=== PATIENT | female | born 1985 | race African-American/Black ===

== ENCOUNTER → 2016-06-10 | Outpatient (CLI) | payer MEDICAID | LOC: RAD 13:40 | PROVIDERS: ATTEND Nurse Practitioner | DX: M79.671 Pain in right foot (principal) ==

== ENCOUNTER 2016-08-12 | Emergency (ER) | payer MEDICAID ==
--- NOTE | 2016-08-12 16:36 | ER Document Report ---
ED Medical Screen (RME) - General Stated Complaint: SPIDER BITE Notes: Patient states she was bit by a spider on her left fourth toe yesterday. Did not actually see the spider. Has pain and swelling to toes and upper foot I have greeted and performed a rapid initial assessment of this patient. A comprehensive ED assessment and evaluation of the patient, analysis of test results and completion of the medical decision making process will be conducted by additional ED providers. TRAVEL OUTSIDE OF THE [place] IN LAST 30 DAYS: No - Related Data Allergies/Adverse Reactions: Norgestimate-Ethinyl Estradiol * [From [employer]en (28)] Allergy (Severe, Verified 08/12/16 16:34) Hives peanut [Peanut] Allergy (Unknown, Verified 08/12/16 16:34) Shellfish * [Shellfish] Allergy (Unknown, Verified 08/12/16 16:34) soap Allergy (Severe, Uncoded 08/12/16 16:34) break out/itch Past Medical History - Past Medical History Cardiac Medical History: Reports: Hx Hypertension Denies: Hx Coronary Artery Disease, Hx Heart Attack - 2006 mild ? Pulmonary Medical History: Reports: Hx Bronchitis, Hx Pneumonia Denies: Hx Asthma, Hx COPD Neurological Medical History: Denies: Hx Cerebrovascular Accident, Hx Seizures Endocrine Medical History: Reports: Hx Diabetes Mellitus Type 2 Renal/ Medical History: Denies: Hx Ectopic GI Medical History: Reports: Hx Gastroesophageal Reflux Disease Musculoskeltal Medical History: Reports Hx Arthritis - arms,knees Psychiatric Medical History: Reports: Hx Bipolar Disorder, Hx Schizophrenia Infectious Medical History: Past Surgical History: Reports: Hx Section, Hx Cholecystectomy, Hx Oral Surgery - wisdom teeth - Immunizations Immunizations up to date: Yes Hx Diphtheria, Pertussis, Tetanus Vaccination: Yes Physical Exam - Vital signs Vitals: Temp Pulse Resp BP Pulse Ox 98.7 F 76 18 152/92 H 98 08/12/16 16:17 08/12/16 16:17 08/12/16 16:17 08/12/16 16:17 08/12/16 16:17 - Extremities Notes: mild erythema and redness to left fourth and fifth toes. Small dark spot noted to left fourth toe. Course - Vital Signs Vital signs: Temp Pulse Resp BP Pulse Ox 98.7 F 76 18 152/92 H 98 08/12/16 16:17 08/12/16 16:17 08/12/16 16:17 08/12/16 16:17 08/12/16 16:17
--- NOTE | 2016-08-12 17:26 | ER Document Report ---
ED General - General Chief Complaint: Foot Injury Stated Complaint: SPIDER BITE TRAVEL OUTSIDE OF THE [place] IN LAST 30 DAYS: No - HPI Patient complains to provider of: evaluation of left fourth toe Notes: Patient is concerned she was bitten by a spider night prior to arrival due to swelling and itching of her left fourth toe. Patient states that she is been bitten by multiple infections before with swelling erythema and itching. Patient denies any trauma to the toe. - Related Data Allergies/Adverse Reactions: Norgestimate-Ethinyl Estradiol * [From Ortho Tri-Cyclen (28)] Allergy (Severe, Verified 08/12/16 16:34) Hives peanut [Peanut] Allergy (Unknown, Verified 08/12/16 16:34) Shellfish * [Shellfish] Allergy (Unknown, Verified 08/12/16 16:34) soap Allergy (Severe, Uncoded 08/12/16 16:34) break out/itch Past Medical History - Social History Smoking Status: Never Smoker Chew tobacco use (# tins/day): No Frequency of alcohol use: Occasional Drug Abuse: None Family History: Reviewed & Not Pertinent Patient has suicidal ideation: No Patient has homicidal ideation: No - Past Medical History Cardiac Medical History: Reports: Hx Hypertension Denies: Hx Coronary Artery Disease, Hx Heart Attack - 2006 mild ? Pulmonary Medical History: Reports: Hx Bronchitis, Hx Pneumonia Denies: Hx Asthma, Hx COPD Neurological Medical History: Denies: Hx Cerebrovascular Accident, Hx Seizures Endocrine Medical History: Reports: Hx Diabetes Mellitus Type 2 Renal/ Medical History: Denies: Hx Ectopic , Hx Peritoneal Dialysis GI Medical History: Reports: Hx Gastroesophageal Reflux Disease Musculoskeltal Medical History: Reports Hx Arthritis - arms,knees Psychiatric Medical History: Reports: Hx Bipolar Disorder, Hx Schizophrenia Infectious Medical History: Past Surgical History: Reports: Hx Section, Hx Cholecystectomy, Hx Oral Surgery - wisdom teeth - Immunizations Immunizations up to date: Yes Hx Diphtheria, Pertussis, Tetanus Vaccination: Yes Review of Systems - Review of Systems Constitutional: No symptoms reported EENT: No symptoms reported Cardiovascular: No symptoms reported Respiratory: No symptoms reported Gastrointestinal: No symptoms reported Genitourinary: No symptoms reported Female Genitourinary: No symptoms reported Musculoskeletal: Other - Toe swelling and itching Skin: No symptoms reported Hematologic/Lymphatic: No symptoms reported Neurological/Psychological: No symptoms reported Physical Exam - Vital signs Vitals: Temp Pulse Resp BP Pulse Ox 98.7 F 76 18 152/92 H 98 08/12/16 16:17 08/12/16 16:17 08/12/16 16:17 08/12/16 16:17 08/12/16 16:17 Interpretation: Normal - General General appearance: Appears well, Alert - HEENT Head: Normocephalic, Atraumatic Eyes: Normal Pupils: PERRL - Respiratory Respiratory status: No respiratory distress Chest status: Nontender Breath sounds: Normal Chest palpation: Normal - Cardiovascular Rhythm: Regular Heart sounds: Normal auscultation Murmur: No - Abdominal Inspection: Normal Distension: No distension Bowel sounds: Normal Tenderness: Nontender Organomegaly: No organomegaly - Back Back: Normal, Nontender - Extremities General upper extremity: Normal inspection, Nontender, Normal color, Normal ROM , Normal temperature General lower extremity: Nontender, Normal color, Normal ROM, Normal temperature , Normal weight bearing. No: Normal inspection - Patient has mild swelling of the fourth toe on the left foot with no warmth noted erythema, Quentin's sign - Neurological Neuro grossly intact: Yes Cognition: Normal Orientation: AAOx4 Vicky Coma Scale Eye Opening: Spontaneous Vicky Coma Scale Verbal: Oriented [place] Coma Scale Motor: Obeys Commands Vicky Coma Scale Total: 15 Speech: Normal Motor strength normal: LUE, RUE, LLE, RLE Sensory: Normal - Psychological Associated symptoms: Normal affect, Normal mood - Skin Skin Temperature: Warm Skin Moisture: Dry Skin Color: Normal Course - Re-evaluation Re-evalutation: 08/12/16 19:47 Exam is consistent with a reaction to a bug bite no signs of infection patient was discharged home - Vital Signs Vital signs: Temp Pulse Resp BP Pulse Ox 98.1 F 77 18 136/86 H 99 08/12/16 18:02 08/12/16 18:02 08/12/16 18:02 08/12/16 18:02 08/12/16 18:02 Discharge - Discharge Clinical Impression: Insect bite Qualifiers: Encounter type: initial encounter Qualified Code(s): W57.XXXA - Bitten or stung by nonvenomous insect and other nonvenomous arthropods, initial encounter Allergic reaction Qualifiers: Encounter type: initial encounter Qualified Code(s): T78.40XA - Allergy, unspecified, initial encounter Condition: Good Disposition: HOME, SELF-CARE Instructions: Swollen Insect Bite or Sting ([facility]) Additional Instructions: You may take the Benadryl [id number] or Atarax as prescribed. You may also take pain medication as prescribed follow-up your primary care physician Prescriptions: Ketorolac Tromethamine [Toradol 10 mg Tablet] 10 mg PO Q8HP PRN #14 tablet PRN Reason: Hydroxyzine HCl [Atarax 25 mg Tablet] 1 tab PO QID #25 tablet Referrals: MOON LUGO, NATE-C [NURSE PRACTITIONER] - Follow up as needed
== END 2016-08-12 18:04 | disposition home or self-care (01) ==
CPT/HCPCS: 99283

== ENCOUNTER → 2017-07-05 | Outpatient (CLI) | payer MEDICAID ==
[2017-07-05 17:29] LABS: FREE T4 (FREE THYROXINE) 1.03 ng/dL (0.78-2.19)
[2017-07-05 17:43] LABS: THYROID STIMULATING HORMONE 1.71 uIU/mL (0.47-4.68)
== END ==
LOC: LAB 16:38
PROVIDERS: ATTEND Nurse Practitioner Family
DX: E04.9 Nontoxic goiter, unspecified (principal)
CPT/HCPCS: 36415; 84439; 84443

== ENCOUNTER → 2017-07-05 | Outpatient (CLI) | payer MEDICAID ==
[2017-07-05 17:29] LABS: FREE T4 (FREE THYROXINE) 1.03 ng/dL (0.78-2.19)
[2017-07-05 17:43] LABS: THYROID STIMULATING HORMONE 1.71 uIU/mL (0.47-4.68)
--- NOTE | 2017-07-07 17:09 | RADIOLOGY REPORT (SQ) ---
EXAM DESCRIPTION: U/S THYROID/SFT TISS HD NECK COMPLETED DATE/TIME: 07/07/2017 4:16 pm REASON FOR STUDY: E04.9 NONTOXIC GOITER, UNSPECIFIED E04.9 NONTOXIC GOITER, UNSPECIFIED COMPARISON: None. TECHNIQUE: Dynamic and static dsouza-scale images acquired of the thyroid gland. Selected additional c olor/power Doppler images recorded. All images stored to PACS. LIMITATIONS: None. FINDINGS: RIGHT LOBE: Normal size, 4.7 x 1.9 x 1.7 cm in size. Homogeneous echotexture. 7 x 4 x 3 mm cyst, anterior right lobe thyroid lower pole. LEFT LOBE: Normal size, 3.9 x 1.4 x 1.1 cm in size. Homogeneous echotexture. No cystic or solid mas ses. ISTHMUS: Normal size. Homogeneous echotexture. No cystic or solid masses. OTHER: No other significant finding. IMPRESSION: 7 mm right lobe thyroid cyst. Otherwise, unremarkable study. TECHNICAL DOCUMENTATION: JOB ID: [id number] [employer]- All Rights Reserved
== END ==
LOC: RAD 16:38
PROVIDERS: ATTEND Nurse Practitioner Family
DX: E04.1 Nontoxic single thyroid nodule (principal)
CPT/HCPCS: 36415; 84439; 84443

== ENCOUNTER 2019-04-22 13:06 | Emergency (ER) | payer SELFPAY ==
--- NOTE | 2019-04-22 14:08 | ER Document Report ---
ED Medical Screen (RME) - General Chief Complaint: Abdominal Pain Stated Complaint: ABDOMINAL/BREAST PAIN Time Seen by Provider: 04/22/19 14:01 Primary Care Provider: JURGEN FRANKLIN FNP-C [Primary Care Provider] - Follow up as needed Mode of Arrival: Ambulatory Information source: Patient Notes: 34-year-old female presented to ED for complaint of pain to bilateral breast and abdomen. She delivered her daughter on April 07 and has had pain on both breast and abdominal pain with vaginal discharge and foul odor. She called her [employer] CONTR[employer] CHEMICAL TECHNICIAN and they instructed her to come to the ED to ensure that she does not have any infection at this time. Both breasts are soft at this time there is no obvious mastitis at this time. There is no redness to the breast at this time. Will obtain blood urine and have her get a pelvic exam to ensure there is nothing in the pelvic area. Is alert oriented respirations regular nonlabored speaking in full sentences. Manual blood pressure 132/78 to the right arm. I have greeted and performed a rapid initial assessment of this patient. A comprehensive ED assessment and evaluation of the patient, analysis of test results and completion of medical decision making process will be conducted by an additional ED providers. TRAVEL OUTSIDE OF THE [place] IN LAST 30 DAYS: No - Related Data Allergies/Adverse Reactions: Norgestimate-Ethinyl Estradiol * [From Ortho Tri-Cyclen (28)] Allergy (Severe, Verified 08/12/16 16:34) Hives peanut [Peanut] Allergy (Unknown, Verified 08/12/16 16:34) Shellfish * [Shellfish] Allergy (Unknown, Verified 08/12/16 16:34) soap Allergy (Severe, Uncoded 08/12/16 16:34) break out/itch Past Medical History - Past Medical History Cardiac Medical History: Reports: Hx Hypertension Denies: Hx Coronary Artery Disease, Hx Heart Attack - 2006 mild ? Pulmonary Medical History: Reports: Hx Bronchitis, Hx Pneumonia Denies: Hx Asthma, Hx COPD Neurological Medical History: Denies: Hx Cerebrovascular Accident, Hx Seizures Endocrine Medical History: Reports: Hx Diabetes Mellitus Type 2 Renal/ Medical History: Denies: Hx Ectopic , Hx Peritoneal Dialysis GI Medical History: Reports: Hx Gastroesophageal Reflux Disease Musculoskeltal Medical History: Reports Hx Arthritis - arms,knees Psychiatric Medical History: Reports: Hx Bipolar Disorder, Hx Schizophrenia Infectious Medical History: Past Surgical History: Reports: Hx Section, Hx Cholecystectomy, Hx Oral Surgery - wisdom teeth - Immunizations Immunizations up to date: Yes Hx Diphtheria, Pertussis, Tetanus Vaccination: Yes Physical Exam - Vital signs Vitals: Temp Pulse Resp BP Pulse Ox 98 F 86 18 155/101 H 99 04/22/19 13:37 04/22/19 13:37 04/22/19 13:37 04/22/19 13:37 04/22/19 13:37 Course - Vital Signs Vital signs: Temp Pulse Resp BP Pulse Ox 98 F 86 18 155/101 H 99 04/22/19 13:37 04/22/19 13:37 04/22/19 13:37 04/22/19 13:37 04/22/19 13:37 Doctor's Discharge - Discharge Referrals: JURGEN FRANKLIN FNP-C [Primary Care Provider] - Follow up as needed
[2019-04-22 14:37] LABS: ABSOLUTE BASOPHILS # (AUTO) 0.1 10^3/uL (0.0-0.2); ABSOLUTE EOSINOPHILS # (AUTO) 0.3 10^3/uL (0.0-0.6); ABSOLUTE LYMPHOCYTES (AUTO) 1.9 10^3/uL (0.5-4.7); ABSOLUTE MONOCYTES (AUTO) 0.6 10^3/uL (0.1-1.4); ABSOLUTE NEUT (AUTO) 3.7 10^3/uL (1.7-8.2); BASOPHILS % (AUTO) 0.9 % (0-2); EOSINOPHILS % (AUTO) 4.3 % (0-6); HEMATOCRIT 40.2 % (36.0-47.0); HEMOGLOBIN 13.3 g/dL (12.0-15.5); MEAN CORPUSCULAR HEMOGLOBIN 28.1 pg (27.0-33.4); MEAN CORPUSCULAR HGB CONC 33.1 g/dL (32.0-36.0); MEAN CORPUSCULAR VOLUME 85 fl (80-97); MONOCYTES % (AUTO) 8.8 % (3-13); PLATELET COUNT 268 10^3/uL (150-450); RED BLOOD COUNT 4.72 10^6/uL (3.72-5.28); RED CELL DISTRIBUTION WIDTH 14.4 % (11.5-14.0); TOTAL CELLS COUNTED % (AUTO) 100 %; WHITE BLOOD COUNT 6.5 10^3/uL (4.0-10.5)
[2019-04-22 14:48] LABS: APPEARANCE,URINE CLEAR; BILIRUBIN,URINE NEGATIVE (NEGATIVE); GLUCOSE, URINE NEGATIVE (NEGATIVE); KETONES,URINE NEGATIVE (NEGATIVE); PROTEIN,URINE 100 mg/dL (NEGATIVE); URINE SPECIFIC GRAVITY 1.015
[2019-04-22 14:49] LABS: COLOR,URINE RED
[2019-04-22 14:56] LABS: ALBUMIN 3.6 g/dL (3.5-5.0); ALKALINE PHOSPHATASE 118 U/L (38-126); ANION GAP 9 (5-19); ASPARTATE AMINO TRANSFERASE 21 U/L (14-36); BILIRUBIN,DIRECT 0.1 mg/dL (0.0-0.4); BILIRUBIN,TOTAL 0.2 mg/dL (0.2-1.3); BLOOD UREA NITROGEN 14 mg/dL (7-20); CALCIUM 9.2 mg/dL (8.4-10.2); CARBON DIOXIDE 26 mmol/L (22-30); CHLORIDE 109 mmol/L (98-107); GLUCOSE 82 mg/dL (75-110); POTASSIUM 4.1 mmol/L (3.6-5.0); TOTAL PROTEIN 6.8 g/dL (6.3-8.2)
[2019-04-22] MEDS ORDERED: CEFTRIAXONE 1 GM/D5W RTU 1 GM/50 ML RTUPB IV ONE (17:49)
[2019-04-22] MEDS ORDERED: NORMAL SALINE 1000 ML 1,000 ML IV ONE (17:49)
--- NOTE | 2019-04-22 20:28 | ER Document Report ---
ED General - General Chief Complaint: Abdominal Pain Stated Complaint: ABDOMINAL/BREAST PAIN Time Seen by Provider: 04/22/19 14:01 Mode of Arrival: Ambulatory Information source: Patient TRAVEL OUTSIDE OF THE [place] IN LAST 30 DAYS: No - HPI Notes: Patient presents complaining of bilateral breast pain. Patient also complains of lower abdominal pain and dysuria. She states she had a vaginal approximately 3 weeks ago. She is currently breast-feeding. She states that her breasts have been tender bilaterally firm and erythematous. It is worse w hen touched and better if left alone. There is no known radiation of the symptoms. The symptoms are mild to moderate. They have been intermittent. She also has some lower abdominal cramping with normal lochia. - Related Data Allergies/Adverse Reactions: Norgestimate-Ethinyl Estradiol * [From [employer]-Cyclen (28)] Allergy (Severe, Verified 08/12/16 16:34) Hives peanut [Peanut] Allergy (Unknown, Verified 08/12/16 16:34) Shellfish * [Shellfish] Allergy (Unknown, Verified 08/12/16 16:34) soap Allergy (Severe, Uncoded 08/12/16 16:34) break out/itch Past Medical History - General Information source: Patient - Social History Smoking Status: Unknown if Ever Smoked Family History: Reviewed & Not Pertinent Patient has suicidal ideation: No Patient has homicidal ideation: No - Past Medical History Cardiac Medical History: Reports: Hx Hypertension Denies: Hx Coronary Artery Disease, Hx Heart Attack - 2006 mild ? Pulmonary Medical History: Reports: Hx Bronchitis, Hx Pneumonia Denies: Hx Asthma, Hx COPD Neurological Medical History: Denies: Hx Cerebrovascular Accident, Hx Seizures Endocrine Medical History: Reports: Hx Diabetes Mellitus Type 2 Renal/ Medical History: Denies: Hx Ectopic , Hx Peritoneal Dialysis GI Medical History: Reports: Hx Gastroesophageal Reflux Disease Musculoskeletal Medical History: Reports Hx Arthritis - arms,knees Psychiatric Medical History: Reports: Hx Bipolar Disorder, Hx Schizophrenia Infectious Medical History: Past Surgical History: Reports: Hx Section, Hx Cholecystectomy, Hx Oral Surgery - wisdom teeth - Immunizations Immunizations up to date: Yes Hx Diphtheria, Pertussis, Tetanus Vaccination: Yes Physical Exam - Vital signs Vitals: Temp Pulse Resp BP Pulse Ox 98 F 86 18 155/101 H 99 04/22/19 13:37 04/22/19 13:37 04/22/19 13:37 04/22/19 13:37 04/22/19 13:37 Interpretation: Normal - General General appearance: Appears well, Alert - HEENT Head: Normocephalic, Atraumatic Eyes: Normal Pupils: PERRL - Respiratory Respiratory status: No respiratory distress Chest status: Nontender Breath sounds: Normal Chest palpation: Normal, Other - Breasts bilaterally were unremarkable on exam. There is no induration erythema or warmth. No signs of mastitis. - Cardiovascular Rhythm: Regular Heart sounds: Normal auscultation Murmur: No - Abdominal Inspection: Normal Distension: No distension Bowel sounds: Normal Tenderness: Tender - mild diffuse in bilat lower quadrants Organomegaly: No organomegaly - Back Back: Normal, Nontender - Extremities General upper extremity: Normal inspection, Nontender, Normal color, Normal ROM, Normal temperature General lower extremity: Normal inspection, Nontender, Normal color, Normal ROM, Normal temperature, Normal weight bearing. No: Quentin's sign - Neurological Neuro grossly intact: Yes Cognition: Normal Orientation: AAOx4 [place] Coma Scale Eye Opening: Spontaneous Vicky Coma Scale Verbal: Oriented [place] Coma Scale Motor: Obeys Commands Vicky Coma Scale Total: 15 Speech: Normal Motor strength normal: LUE, RUE, LLE, RLE Sensory: Normal - Psychological Associated symptoms: Normal affect, Normal mood - Skin Skin Temperature: Warm Skin Moisture: Dry Skin Color: Normal Course - Re-evaluation Re-evalutation: 04/22/19 20:25 Patient presents with bilateral breast pain. There is no evidence of mastitis at this time. Exam was unremarkable. Patient also presents with some lower abdominal pain and has an obvious urinary tract infection. She did receive fluids and antibiotics here. No evidence of systemic infection or sepsis. She also has received an ultrasound to evaluate for retained products. US shows no evidence of retained products. 04/22/19 21:20 - Vital Signs Vital signs: Temp Pulse Resp BP Pulse Ox 98.3 F 71 14 129/68 H 100 04/22/19 20:13 04/22/19 20:13 04/22/19 20:13 04/22/19 20:13 04/22/19 20:13 - Laboratory Result Diagrams: 04/22/19 14:25 04/22/19 14:25 Laboratory results interpreted by me: 04/22/19 04/22/1919 14:25 14:25 14:25 RDW 14.4 H Chloride 109 H Est GFR (MDRD) Non-Af 54 L Urine Protein 100 H Urine Blood LARGE H Urine Urobilinogen 2.0 H Leukocyte Esterase Rfl LARGE H - Diagnostic Test Radiology reviewed: Image reviewed, Reports reviewed Discharge - Discharge Clinical Impression: UTI (urinary tract infection) Qualifiers: Urinary tract infection type: acute cystitis Hematuria presence: with hematuria Qualified Code(s): N30.01 - Acute cystitis with hematuria Condition: Stable Disposition: HOME, SELF-CARE Instructions: Urinary Tract Infection ([facility]) Additional Instructions: Please call your bologna maker as soon as possible to arrange follow-up Prescriptions: Cefdinir 300 mg PO BID 7 Days #14 capsule Referrals: JURGEN FRANKLIN FNP-C [Primary Care Provider] - Follow up in 3-5 days
--- NOTE | 2019-04-22 20:54 | RADIOLOGY REPORT (SQ) ---
US PELVIS EXAM DATE: 04/22/2019 6:[address] REPORTER HISTORY: Pelvic pain. COMPARISON: None. TECHNIQUE: Grayscale, color Doppler, and spectral Doppler ultrasound images of the pelvis were obtained. FINDINGS: The uterus is anteverted and measures 11.0 x 6.0 x 9.6 cm. The endometrium is 9 mm in thickness and is avascular. The cervix is 2.5 cm in length. The right ovary is not seen due to bowel gas. The left ovary measures 4.3 cm and contains color Doppler blood flow. No free fluid. IMPRESSION: No evidence of retained products of conception.
[2019-04-22 21:27] VITALS: BP 124/63
== END 2019-04-22 21:27 | disposition home or self-care (01) ==
LOC: ER 13:06
DX: O92.29 Other disorders of breast associated with pregnancy and the puerperium (principal); O86.22 Infection of bladder following delivery; O24.13 Pre-existing type 2 diabetes mellitus, in the puerperium; E11.9 Type 2 diabetes mellitus without complications; O16.5 Unspecified maternal hypertension, complicating the puerperium; O90.89 Other complications of the puerperium, not elsewhere classified; R10.30 Lower abdominal pain, unspecified; Z91.010 Allergy to peanuts; Z88.8 Allergy status to other drugs, medicaments and biological substances; Z91.013 Allergy to seafood; Z88.3 Allergy status to other anti-infective agents
CPT/HCPCS: 99284; 96365; 36415; 87086; 85025; 80053; 81001; 76856; J7030; J0696